=== PATIENT | male | born 1985 | race Asian ===

== ENCOUNTER 2016-07-27 12:41 | Emergency (ER) | payer SELFPAY ==
[~2016-07-27] VITALS: Ht 180.3 cm; Wt 74.8 kg
[~2016-07-27 12:41] MED LIST: ACETAMINOPHEN-1 EAC1 ORAL; ALBUTEROL SULF8.5 GM INH; FLONASE ALLERG9.9 ML NS; IBUPROFEN800 MG ORAL; NKM
--- NOTE | 2016-07-27 13:20 | Emergency Room Report ---
History of Present Illness General Chief Complaint: Upper Respiratory Illness Source: Patient Present Illness HPI 30-year-old male presents emergency department complaining of lingering cough with intermittent clear sputum production x3 weeks with intermittent sore throat and nasal congestion. Patient states he has been managing his symptoms with Benadryl and Motrin. Patient states he continues to have rhinorrhea and intermittent congestion. Patient states cough has begun to resolve. Patient denies fevers, chills, ill contacts, recent travel, rashes. he states he is up- to-date with vaccinations except for tetanus. Denies CP, Palpitations, LOC, AMS , dizziness, Changes in Vision, Sensation, paresthesias, or a sudden severe headache. Allergies: Coded Allergies: No Known Allergies (Unverified , 02/10/16) Patient History Past Medical History: see triage record Past Surgical History: none Pertinent Family History: none Immunizations: UTD Reviewed Nursing Documentation: PMH: Agreed, PSxH: Agreed Nursing Documentation-PMH Past Medical History: No Stated History Review of Systems All Other Systems: negative except mentioned in HPI Physical Exam Vital Signs Date Time Temp Pulse Resp B/P Pulse Ox O2 Delivery O2 Flow Rate FiO2 07/27/16 12:51 98.4 99 14 120/77 96 Room Air Sp02 EP Interpretation: reviewed, normal General Appearance: no apparent distress, alert, GCS 15, non-toxic Head: normocephalic, atraumatic Eyes: bilateral eye PERRL, bilateral eye normal inspection ENT: hearing grossly normal, normal pharynx, no angioedema, normal voice, TMs + canals normal, uvula midline, moist mucus membranes, nasal congestion Neck: full range of motion, no meningismus, no bony tend, supple/symm/no masses Respiratory: chest non-tender, lungs clear, normal breath sounds, speaking full sentences Cardiovascular #1: regular rate, rhythm, no edema Musculoskeletal: back normal, gait/station normal, normal range of motion, non- tender Neurologic: alert, oriented x3, responsive, motor strength/tone normal, sensory intact, speech normal Psychiatric: judgement/insight normal, memory normal, mood/affect normal Skin: normal color, no rash, warm/dry, well hydrated Lymphatic: no adenopathy Medical Decision Making PA Attestation Dr. akhtar is my supervising Physician whom patient management has been discussed with. Diagnostic Impression: Primary Impression: Post-nasal drainage Additional Impression: Rhinitis Qualified Codes: J30.9 - Allergic rhinitis, unspecified ER Course 30-year-old male presents emergency department complaining of lingering cough with intermittent clear sputum production x3 weeks with intermittent sore throat and nasal congestion. Patient states he has been managing his symptoms with Benadryl and Motrin. Patient states he continues to have rhinorrhea and intermittent congestion. Patient states cough has begun to resolve. Patient denies fevers, chills, ill contacts, recent travel, rashes. he states he is up- to-date with vaccinations except for tetanus. Ddx considered but are not limited to URI, pneumonia, PE, strep pharyngitis, meningitis, Sinusitis, PND, rhinitis Vital signs: Pt. is afebrile, the remaining VS are WNL H&PE are most consistent with Rhinitis with post nasal drainage, no sinus ttp, clear lung sounds, - no meningeal signs, oropharynx is not involved, no evidence of bacterial infection at this time. ORDERS: none required at this time, the diagnosis is clinical ED INTERVENTIONS: None required at this time. --PT. EDUCATION: Discussed antibiotic resistance with inappropriate prescribing of antibiotics for viral illnesses. Discussed with patient will treat symptomatically and conservatively with zyrtec and nasal decongestant, d/w pt. follow up with PCP or to return to ED with worsening or new symptoms. DISCHARGE: At this time pt. is stable for d/c to home. Will provide printed patient care instructions, and any necessary prescriptions. Care plan and follow up instructions have been discussed with the patient prior to discharge. Last Vital Signs Date Time Temp Pulse Resp B/P Pulse Ox O2 Delivery O2 Flow Rate FiO2 07/27/16 13:01 99 14 Room Air 07/27/16 12:51 98.4 120/77 96 Disposition: HOME, SELF-CARE Condition: Stable Scripts Cetirizine Hcl* (ZYRTEC*) 10 Mg Tablet 10 MG ORAL DAILY for 14 Days, #30 TAB 0 Refills Prov: Matilde Burleson P.A. 07/27/16 Pseudoephedrine Hcl* (NEXAFED*) 30 Mg Tablet 30 MG ORAL Q6H Y for congestion, #20 TAB Prov: Matilde Burleson P.A. 07/27/16 Patient Instructions: Allergic Rhinitis Additional Instructions: Take medications as directed. Follow up with PCP in 3-5 days Return sooner to ED if new symptoms occur, or current symptoms become worse. - Please note that this Emergency Department Report was dictated using [employer] technology software, occasionally this can lead to erroneous entry secondary to interpretation by the dictation equipment. Matilde Burleson July 27, 2016 13:20
[2016-07-27] MEDS ORDERED: ZYRTEC10 MG ORAL (13:21)
[2016-07-27] MEDS ORDERED: NEXAFED30 MG ORAL (13:21)
[2016-07-27 13:26] VITALS: BP 120/77
== END 2016-07-27 13:28 | disposition home or self-care (01) ==
LOC: EMR 13:24
DX: R09.82 Postnasal drip (principal); J31.0 Chronic rhinitis
CPT/HCPCS: 99284